=== PATIENT | female | born 1970 ===

== ENCOUNTER 2019-03-11 11:14 | Day surgery (SDC) | payer BC ==
[~2019-03-11] VITALS: Ht 154.9 cm; Wt 68.2 kg
[2019-03-11 11:25] VITALS: BP 128/75
[2019-03-11] MEDS ORDERED: LIDOcaine Viscous 15ml cup ONE (12:27)
[2019-03-11] MEDS ORDERED: MIDAZolam 5mg/5ml vial ONE (12:27)
[2019-03-11] MEDS ORDERED: fentaNYL/PF 50MCG/1 ML 2ML syringe ONE (12:27)
[2019-03-11 12:45] VITALS: BP 130/77
[2019-03-11 12:55] VITALS: BP 115/64
[2019-03-11] MEDS ORDERED: METF-516 PO (12:55)
[2019-03-11] MEDS ORDERED: VICTOZA (12:55)
[2019-03-11] MEDS ORDERED: MULT-955 PO (12:56)
[2019-03-11 13:05] VITALS: BP 119/76
[2019-03-11 13:15] VITALS: BP 128/55
== END 2019-03-11 13:25 | disposition home or self-care (01) ==
LOC: GI LAB 11:14
PROVIDERS: ATTEND Internal Medicine Gastroenterology
DX: K74.60 Unspecified cirrhosis of liver (principal); I85.00 Esophageal varices without bleeding; Z90.3 Acquired absence of stomach [part of]; Z79.899 Other long term (current) drug therapy
CPT/HCPCS: 43235; 99152; J2250; J3010; J7040; A4620